=== PATIENT | male | born 1945 | race Caucasian/White ===

== ENCOUNTER 2018-05-11 12:39 | Emergency (ER) | payer MEDICARE, MEDICAID ==
[~2018-05-11] VITALS: Ht 175.3 cm; Wt 86.3 kg
[2018-05-11] MEDS ORDERED: normal saline 1000ML IV soln IVB ONE (14:00)
[2018-05-11 14:41] LABS: BASOPHILS % (AUTO) 0.3 % (0-1); EOSINOPHILS # (AUTO) 0.1 X10'3 (0-0.9); EOSINOPHILS % (AUTO) 1.2 % (0-6); HEMATOCRIT 43.9 % (42.0-52.0); HEMOGLOBIN 13.9 g/dl (14.0-17.9); LYMPHOCYTES # (AUTO) 1.5 X10'3 (1.1-4.8); LYMPHOCYTES % (AUTO) 21.5 % (21-51); MEAN CORPUSCULAR HEMOGLOBIN 25.6 PG (27.0-31.0); MEAN CORPUSCULAR HGB CONC 31.6 % (33.0-36.5); MEAN PLATELET VOLUME 7.7 FL (7.4-10.4); MONOCYTES # (AUTO) 0.7 X10'3 (0-0.9); MONOCYTES % (AUTO) 9.9 % (2-12); NEUTROPHILS # (AUTO) 4.7 X10'3 (1.8-7.7); NEUTROPHILS % (AUTO) 67.1 % (42-75); PLATELET COUNT 298 X10'3 (140-440); RED BLOOD COUNT 5.43 X10'6 (4.70-6.10); RED CELL DISTRIBUTION WIDTH 15.9 % (11.5-14.5)
[2018-05-11 14:46] LABS: CLARITY,URINE SLIGHTLY CLOUDY (Clear); COLOR,URINE YELLOW (Yellow); GLUCOSE, URINE NEGATIVE (Neg); KETONES,URINE 15 mg/dl (Neg); LEUKOCYTE ESTERASE ,URINE MODERATE (Neg); NITRITES, URINE POSITIVE (Neg); OCCULT BLOOD,URINE SMALL (Neg); PROTEIN,URINE TRACE mg/dl (Neg)
[2018-05-11 14:51] LABS: UA COLLECTION TYPE CLN CATCH MIDSTREAM
[2018-05-11 14:52] LABS: BACTERIA,URINE 2+ /HPF (Neg); MUCUS STRANDS NONE SEEN /LPF (Neg); RBC,URINE 0-2 /HPF (0-2); SQUAMOUS EPITHELIAL CELL,UR NONE SEEN /LPF (FEW); WBC,URINE 30-50 /HPF (0-4)
[2018-05-11 14:57] LABS: ALANINE AMINOTRANSFERASE 25 U/L (12-78); ALBUMIN 3.9 G/DL (3.4-5.0); ALBUMIN/GLOBULIN RATIO 0.9 (1.1-1.5); ALKALINE PHOSPHATASE 93 IU/L (46-116); ANION GAP 10 (8-16); ASPARTATE AMINO TRANSFERASE 15 U/L (10-37); BILIRUBIN,TOTAL 0.6 MG/DL (0.1-1.0); BLOOD UREA NITROGEN 14 MG/DL (7-18); BUN/CREATININE RATIO 17.1 (5.4-32.0); CALCIUM 8.9 MG/DL (8.5-10.1); CHLORIDE 103 MMOL/L (99-107); CREATININE 0.82 MG/DL (0.60-1.10); GLUCOSE 97 MG/DL (70-104); LIPASE 63 U/L (73-393); SODIUM 140 MMOL/L (135-145); TOTAL CARBON DIOXIDE 27.1 MMOL/L (24-32); TOTAL PROTEIN 8.4 G/DL (6.4-8.2); eGFR > 90 ML/MIN
[2018-05-11] MEDS ORDERED: CEPH500C5 PO (15:05)
[2018-05-11] MEDS ORDERED: CefTRIAXone 2gm/D5W 50ml 50 ML IV ONE (15:05)
[2018-05-11] MEDS ORDERED: FLO0.4C PO (15:05)
[2018-05-11 17:30] VITALS: BP 141/87
== END 2018-05-11 17:34 | disposition home or self-care (01) ==
LOC: ER 12:40
DX: N39.0 Urinary tract infection, site not specified (principal); K63.89 Other specified diseases of intestine; Z79.2 Long term (current) use of antibiotics; Z79.899 Other long term (current) drug therapy
CPT/HCPCS: 36415; 74176; 80053; 81001; 83690; 85025; 87077; 87088; 87186; 93005; 96365; 99285; J0696

== ENCOUNTER 2019-12-26 10:27 | Outpatient (CLI) | payer MEDICARE, MEDICAID ==
[~2019-12-26] VITALS: Ht 177.8 cm; Wt 81.6 kg
[2019-12-26] MEDS ORDERED: albuterol 2.5 MG/3 ML nebule NEB PRN (10:45)
== END 2019-12-26 23:59 | disposition home or self-care (01) ==
LOC: RT 10:27
PROVIDERS: ATTEND Internal Medicine Pulmonary Disease
DX: J84.10 Pulmonary fibrosis, unspecified (principal); J98.4 Other disorders of lung
CPT/HCPCS: 94060; 94727; 94729; 94760

== ENCOUNTER 2021-01-27 07:26 | Emergency (ER) | payer BC, MEDICAID ==
[~2021-01-27] VITALS: Ht 175.3 cm; Wt 81.8 kg
[~2021-01-27 07:26] MED LIST: ALBU8.5H8 INH; ALPR0.5T9 PO; ATOR20TA66 PO; AZI25OT PO; BENZ-16 PO; BUDE10.22 INH; CEFD300C3 PO; ESCI5TAB17 PO; FLO0.4C PO; PRED10TA23 PO
[2021-01-27 07:34] VITALS: BP 153/79
== END 2021-01-27 08:22 | disposition home or self-care (01) ==
LOC: ER 07:27
DX: J84.10 Pulmonary fibrosis, unspecified (principal); I50.9 Heart failure, unspecified; Z79.2 Long term (current) use of antibiotics; Z79.899 Other long term (current) drug therapy
CPT/HCPCS: 99281

== ENCOUNTER 2021-02-10 12:46 | Outpatient (CLI) | payer BC, MEDICAID | END 2021-02-10 23:59 | disposition home or self-care (01) | LOC: RT 12:46 | PROVIDERS: ATTEND Internal Medicine Pulmonary Disease | DX: R94.2 Abnormal results of pulmonary function studies (principal); J84.10 Pulmonary fibrosis, unspecified | CPT/HCPCS: 94010; 94727; 94729; 94760 ==

== ENCOUNTER 2021-04-03 09:14 | Inpatient (IN) | payer MEDICARE, MEDICAID ==
[~2021-04-03] VITALS: Ht 177.8 cm; Wt 87.0 kg
[~2021-04-03 09:14] MED LIST changes: +ALBU8.5H17 INH; -ALBU8.5H8 INH; -CEFD300C3 PO; -PRED10TA23 PO
--- NOTE | 2021-04-03 10:10 | NUR ---
CALLED TO PT DAUGHTER ABOUT POC OF PT, SPOKE TO SON IN LAW AND STATED WILL HAVE DAUGHTER LEYLA CALL BACK. PT KEEPS TAKING OFF MASK Addendum: 04/03/21 at 1048 by [email or web address] pt sister leyla
[2021-04-03 10:44] LABS: BASOPHILS % (AUTO) 0.1 % (0-1); EOSINOPHILS % (AUTO) 0 % (0-6); LYMPHOCYTES # (AUTO) 0.6 X10'3 (1.1-4.8); LYMPHOCYTES % (AUTO) 3.3 % (21-51); MONOCYTES # (AUTO) 1.1 X10'3 (0-0.9); MONOCYTES % (AUTO) 6.3 % (2-12); NEUTROPHILS # (AUTO) 15.9 X10'3 (1.8-7.7); NEUTROPHILS % (AUTO) 90.3 % (42-75); WHITE BLOOD COUNT 17.6 X10'3 (4.5-11.0)
--- NOTE | 2021-04-03 10:48 | NUR ---
spoke with sister leyla, stated she will speak to his son and come down to speak with dr trevino.
[2021-04-03 10:59] LABS: ALANINE AMINOTRANSFERASE 138 U/L (12-78); ALBUMIN 3.8 G/DL (3.4-5.0); ALBUMIN/GLOBULIN RATIO 0.8 (1.1-1.5); ALKALINE PHOSPHATASE 103 IU/L (46-116); ANION GAP 21 (8-16); ASPARTATE AMINO TRANSFERASE 175 U/L (10-37); BLOOD UREA NITROGEN 26 MG/DL (7-18); BUN/CREATININE RATIO 13.4 (5.4-32.0); CALCIUM 8.9 MG/DL (8.5-10.1); CHLORIDE 110 MMOL/L (99-107); CREATININE 1.94 MG/DL (0.60-1.10); GLUCOSE 135 MG/DL (70-104); POTASSIUM 5.4 MMOL/L (3.5-5.1); SODIUM 148 MMOL/L (135-145); TOTAL CARBON DIOXIDE 17.4 MMOL/L (24-32); TOTAL PROTEIN 8.4 G/DL (6.4-8.2); eGFR 34 ML/MIN
[2021-04-03 11:01] LABS: HEMATOCRIT 47.1 % (42.0-52.0); HEMOGLOBIN 14.8 g/dl (14.0-17.9); MEAN CORPUSCULAR HGB CONC 31.5 g/dL (33.0-36.5); MEAN CORPUSCULAR VOLUME 82.5 FL (78-98); MEAN PLATELET VOLUME 7.1 FL (7.4-10.4); PLATELET COUNT 242 X10'3 (140-440); RED BLOOD COUNT 5.71 X10'6 (4.70-6.10); RED CELL DISTRIBUTION WIDTH 17.4 % (11.5-14.5)
[2021-04-03] MEDS ORDERED: aspirin 81mg tab.chew PO ONE (11:10)
[2021-04-03] MEDS ORDERED: heparin 10,000 units/1 ML INJ IV ONE ×2 (11:35→11:45)
[2021-04-03] MEDS ORDERED: heparin 10,000 units/1 ML INJ IV PRN (11:35)
[2021-04-03] MEDS ORDERED: LORazepam 2 mg/ml vial IV ONE (12:10)
[2021-04-03] MEDS ORDERED: normal saline 1000ml 1,000 ML IV ONE (12:30)
[2021-04-03] MEDS ORDERED: ipratropium/albuterol 3ml nebule NEB PRN (12:45)
[2021-04-03] MEDS ORDERED: morphine 2 MG/ML inj. syringe IV ONE ×2 (12:45→13:00)
--- NOTE | 2021-04-03 13:11 | NUR ---
Pt had episode of hypotension with BP 81/56 confirmed with manual. Fluids placed on pressure bag, repeat BP 98/61 five minutes later.
[2021-04-03] MEDS: heparin 25,000 UNIT/250ml bag 250 ML IV SCH (13:31)
--- NOTE | 2021-04-03 14:20 | NUR ---
Son, Kobe Thompson, phone number [phone] if he needs to be contacted.
[2021-04-03] MEDS ORDERED: sodium phosphate inj. 30 MMOL in dextrose 5%-water 250 ML IV PRN (15:35)
[2021-04-03] MEDS ORDERED: magnesium 2GM in 50ml NS 50 ML IV PRN (15:35)
[2021-04-03] MEDS ORDERED: potassium Cl 20 mEq SR tablet PO PRN ×2 (15:35)
[2021-04-03] MEDS ORDERED: magnesium 4gm in 100ml NS 100 ML IV PRN (15:35)
[2021-04-03] MEDS: K, MAG and/or Phos replacement - Verify level? MC SCH (15:35)
[2021-04-03] MEDS ORDERED: ondansetron/PF 4mg/2ml inj IV PRN (15:35)
[2021-04-03] MEDS ORDERED: magnesium hydroxide 30ml (MOM) UD suspension PO PRN (15:35)
[2021-04-03] MEDS ORDERED: magnesium Cl slow-release 64mg tablet PO PRN (15:35)
[2021-04-03] MEDS ORDERED: sodium phosphate inj. 15 MMOL in dextrose 5%-water 250 ML IV PRN (15:35)
[2021-04-03] MEDS ORDERED: enoxaparin 40mg/0.4ml syringe SUBCUT SCH (15:35)
[2021-04-03] MEDS ORDERED: Neutra Phos packet PO PRN (15:35)
[2021-04-03] MEDS ORDERED: albuterol 2.5 MG/3 ML nebule NEB PRN (15:35)
[2021-04-03] MEDS ORDERED: acetaminophen 325mg tablet PO PRN ×2 (15:35)
[2021-04-03] MEDS: methylPREDNISolone sod succ 125mg/2ml vial IV SCH ×2 (16:00→16:28)
--- NOTE | 2021-04-03 16:10 | NUR ---
Per pharmacy, Rocephin and Heaparin Y-site compatible.
[2021-04-03 16:13] LABS: MAGNESIUM 2.2 MG/DL (1.5-2.4); PHOSPHORUS 6.3 MG/DL (2.3-4.5)
[2021-04-03 16:20] LABS: ABG BASE EXCESS -11.7 mmol/L (-2.0-2.0); ABG HCO3 14.4 mmol/L (22.0-26.0); ABG OXYGEN SATURATION 91.3 % (94-97); ABG PCO2 (T) 33.4 mmHg (35.0-48.0); ABG PO2 (T) 71.2 mmHg (75.0-100.0); ALLEN'S TEST POSITIVE; FCOHb 0.5 % (0.0-3.9); FLOW 15 L/min; FMetHb 0.3 % (0.0-1.5); FO2Hb 90.6 % (94-97); TOTAL HEMOGLOBIN 13.6 G/dl (14.0-18.0)
[2021-04-03] MEDS: CefTRIAXone 2gm/D5W 50ml BAG 50 ML IV SCH (16:28)
[2021-04-03] MEDS: azithromycin 250mg tablet PO SCH (16:28)
[2021-04-03] MEDS: morphine 2 MG/ML inj. syringe IV PRN (21:29)
[2021-04-03] MEDS: morphine 4 MG/ML inj SYRINge IV PRN (22:53)
[2021-04-04] VITALS (11 sets, daily range): BP systolic 106–149; BP diastolic 57–93
[2021-04-04] MEDS: methylPREDNISolone sod succ 125mg/2ml vial IV SCH ×3 (00:43→15:23)
[2021-04-04] MEDS: morphine 4 MG/ML inj SYRINge IV PRN ×4 (00:44→19:25)
[2021-04-04] MEDS ORDERED: ALBU8HFA IH (02:24)
[2021-04-04] MEDS ORDERED: FINA5TAB11 PO (02:24)
[2021-04-04] MEDS ORDERED: BUDE10.27 PO (02:24)
[2021-04-04 02:51] LABS: PARTIAL THROMBOPLASTIN TIME 70 SECONDS (22-32)
[2021-04-04] MEDS ORDERED: LORazepam 2 mg/ml vial IV ONE (05:20)
[2021-04-04 07:09] LABS: BASOPHILS % (AUTO) 0 % (0-1); EOSINOPHILS % (AUTO) 0 % (0-6); LYMPHOCYTES # (AUTO) 0.7 X10'3 (1.1-4.8); LYMPHOCYTES % (AUTO) 3.7 % (21-51); MEAN PLATELET VOLUME 7.6 FL (7.4-10.4); MONOCYTES # (AUTO) 0.5 X10'3 (0-0.9); MONOCYTES % (AUTO) 2.6 % (2-12); NEUTROPHILS # (AUTO) 17.2 X10'3 (1.8-7.7); NEUTROPHILS % (AUTO) 93.7 % (42-75); PLATELET COUNT 211 X10'3 (140-440); WHITE BLOOD COUNT 18.4 X10'3 (4.5-11.0)
[2021-04-04 07:25] LABS: ALANINE AMINOTRANSFERASE 534 U/L (12-78); ALBUMIN 3.5 G/DL (3.4-5.0); ALBUMIN/GLOBULIN RATIO 0.8 (1.1-1.5); ALKALINE PHOSPHATASE 87 IU/L (46-116); ANION GAP 13 (8-16); ASPARTATE AMINO TRANSFERASE 520 U/L (10-37); BILIRUBIN,TOTAL 0.7 MG/DL (0.1-1.0); BLOOD UREA NITROGEN 30 MG/DL (7-18); BUN/CREATININE RATIO 22.2 (5.4-32.0); CALCIUM 8.6 MG/DL (8.5-10.1); CHLORIDE 111 MMOL/L (99-107); CREATININE 1.35 MG/DL (0.60-1.10); GLUCOSE 137 MG/DL (70-104); MAGNESIUM 2.4 MG/DL (1.5-2.4); PHOSPHORUS 3.4 MG/DL (2.3-4.5); POTASSIUM 5.2 MMOL/L (3.5-5.1); SODIUM 146 MMOL/L (135-145); TOTAL CARBON DIOXIDE 22.4 MMOL/L (24-32); TOTAL PROTEIN 7.9 G/DL (6.4-8.2); eGFR 52 ML/MIN
[2021-04-04] MEDS ORDERED: pantoprazole 40mg Tablet.DR PO SCH (07:30)
[2021-04-04] MEDS: K, MAG and/or Phos replacement - Verify level? MC SCH (08:00)
[2021-04-04 08:19] LABS: HEMATOCRIT 41.4 % (42.0-52.0); HEMOGLOBIN 12.9 g/dl (14.0-17.9); MEAN CORPUSCULAR HEMOGLOBIN 26.1 PG (27.0-31.0); MEAN CORPUSCULAR VOLUME 84.3 FL (78-98); RED BLOOD COUNT 4.92 X10'6 (4.70-6.10); RED CELL DISTRIBUTION WIDTH 17.1 % (11.5-14.5)
[2021-04-04] MEDS ORDERED: aspirin 81mg, enteric-coated 1 TAB TABLET.DR PO SCH (08:30)
[2021-04-04] MEDS: azithromycin 250mg tablet PO SCH (08:42)
[2021-04-04 08:59] LABS: ANISOCYTOSIS 1+; BURR CELLS FEW; ELLIPTOCYTES FEW; HYPOCHROMASIA 1+; PLATELET ESTIMATE NORMAL; POLYCHROMASIA 1+; TEAR DROP CELLS 1+
[2021-04-04] MEDS: CefTRIAXone 2gm/D5W 50ml BAG 50 ML IV SCH (09:55)
[2021-04-04 10:21] LABS: CHOL/HDL RATIO 1.9 (0.00-4.99); CHOLESTEROL 111 MG/DL (0-200); HDL CHOLESTEROL 60 MG/DL (35-60); LDL CHOLESTEROL 39 MG/DL (50-100); TRIGLYCERIDES 79 MG/DL (20-135)
[2021-04-04] MEDS: morphine 2 MG/ML inj. syringe IV PRN ×6 (12:21→18:33)
[2021-04-04] MEDS ORDERED: LORazepam 2 mg/ml vial IV PRN (13:45)
[2021-04-04] MEDS ORDERED: morphine 4 MG/ML inj SYRINge IV PRN ×2 (13:45→14:35)
[2021-04-04] MEDS: heparin 25,000 UNIT/250ml bag 250 ML IV SCH (15:22)
--- NOTE | 2021-04-04 15:32 | NUR ---
Dr. Hendrix gave me a telephone order for DNR with comfort care after family discussion with Case Management. Family agress this is the best course of action.
--- NOTE | 2021-04-04 18:07 | NUR ---
Family is planning on removing O2 tonight and has permission to stay past 1830
[2021-04-04] MEDS: LORazepam 2 mg/ml vial IV PRN ×4 (18:13→19:52)
--- NOTE | 2021-04-04 18:15 | NUR ---
Patient in room ICU 2038. I have received report from Bebe RENTERIA and had the opportunity to ask questions and assume patient care.
--- NOTE | 2021-04-04 18:19 | NUR ---
Problems reprioritized. Patient report given, questions answered & plan of care reviewed with Tana RENTERIA.
[2021-04-04] MEDS ORDERED: lactobacillus rhamnosus 10,000 MMU CELLS/CAPSULE PO SCH (20:00)
--- NOTE | 2021-04-04 20:20 | NUR ---
RN IS TO DOCUMENT YES TO ALL APPLICABLE AREAS Pronouncement of : 1. Time Physician Notified: 20:20 2. Date of : 04/04/2021 3. Time of : 20:17:19 4. DNR/Withdraw life support documented: yes 5. Monitor strip has been placed on chart: yes 6. Assessment process is of one-minute duration and includes following criteria: a) Patient is unresponsive to all stimuli: yes b) Pupils fixed and non-reactive: yes c) Auscultation of precordium reveals absence of heart tones: yes d) Auscultation of lungs reveals absence of breath sounds: yes e) Absence of blood pressure / all vital signs: yes f) QRS complexes are not present on monitor / EKG strip: yes g) Pacer spikes without capture: N/A 4. Comments: Family and nurse present at bedside when patient passed. Dr. Gay was notified of patient . Patient belongings that remain in room include a pair of shorts that will be sent with patient to [facility] in [place].
== END 2021-04-04 22:00 ==
LOC: ER 09:15 → ED HOLD 15:47 → EDBEDREQ 04-04 05:17 → ICU 2S 04-04 08:00
PROVIDERS: ADMIT Internal Medicine Critical Care Medicine; ATTEND Internal Medicine Critical Care Medicine
PROC: 5A0935A Assistance with Respiratory Ventilation, Less than 24 Consecutive Hours, High Flow/Velocity Cannula (ICD-10-PCS; principal; 2021-04-03)
PROC: 5A09357 Assistance with Respiratory Ventilation, Less than 24 Consecutive Hours, Continuous Positive Airway Pressure (ICD-10-PCS; 2021-04-03)
PROC: 5A0935A Assistance with Respiratory Ventilation, Less than 24 Consecutive Hours, High Flow/Velocity Cannula (ICD-10-PCS; 2021-04-04)
PROC: 5A09357 Assistance with Respiratory Ventilation, Less than 24 Consecutive Hours, Continuous Positive Airway Pressure (ICD-10-PCS; 2021-04-04)
DX: I21.4 Non-ST elevation (NSTEMI) myocardial infarction (principal); J18.9 Pneumonia, unspecified organism; J96.21 Acute and chronic respiratory failure with hypoxia; N17.9 Acute kidney failure, unspecified; J44.0 Chronic obstructive pulmonary disease with (acute) lower respiratory infection; E78.5 Hyperlipidemia, unspecified; F41.8 Other specified anxiety disorders; Z51.5 Encounter for palliative care; I45.10 Unspecified right bundle-branch block; I50.9 Heart failure, unspecified; R79.89 Other specified abnormal findings of blood chemistry; J84.10 Pulmonary fibrosis, unspecified; N40.0 Benign prostatic hyperplasia without lower urinary tract symptoms; Z20.822 Contact with and (suspected) exposure to COVID-19; Z66 Do not resuscitate; Z87.891 Personal history of nicotine dependence; Z99.81 Dependence on supplemental oxygen; Z79.899 Other long term (current) drug therapy
CPT/HCPCS: 36415; 36600; 71045; 80053; 80061; 82803; 83605; 83735; 83880; 84100; 84484; 85008; 85018; 85025; 85610; 85730; 87040; 87635; 93005; 93308; 94660; 94760; 96365; 96375; 99291; 99292; C9803; G0378; J0696; J1644; J2060; J2270; J2930; J7030